=== PATIENT | male | born 1935 | race Caucasian/White ===

== ENCOUNTER → 2018-09-02 | Outpatient (CLI) | payer OTHER, MEDICARE ==
--- NOTE | 2018-09-02 15:37 | 2DMMODE ---
[facility] [place] [address] 2 D/M-MODE ECHOCARDIOGRAM Name: SOFIJACKSON LEE Room #: REG [facility]#: [id number] ������������� Admission: 09/02/18 ������������� Attend Phys: Niels Mckee Discharge: ��� ������������� ��� Date of : 33 Date of Service: 09/02/18 1537 �� Report #: [id number] �������� ��������������������������������������������[id number] THIS REPORT FOR: //name// APPROVED REPORT Study performed: 09/02/2018 13:07:52 EXAM: Comprehensive 2D, Doppler, and color-flow Echocardiogram Patient Location: Out-Patient Status: routine BSA: 1.95 HR: 93 bpm BP: 120/74 mmHg Rhythm: Atrial Fibrillation Other Information Study Quality: Good Indications Atrial Fibrillation 2D Dimensions RVDd: 42.37 mm IVSd: 14.59 (7-11mm) LVOT Diam: 21.83 (18-24mm) LVDd: 36.78 mm PWd: 13.07 (7-11mm) Ascending Ao: 37.53 (22-36mm) LVDs: 28.16 (25-40mm) Aortic Root: 36.17 mm Volumes Left Atrial Volume (Systole) Single Plane 4CH: 116.56 mL Single Plane 2CH: 108.01 mL LA ESV Index: 63.00 mL/m2 Aortic Valve AoV Peak Seun.: 2.73 m/s AO Peak Gr.: 29.78 mmHg LVOT Max P.51 mmHg AO Mean Gr.: 18.46 mmHg AO V2 Mean: 2.09 m/s LVOT Max V: 0.79 m/s AO V2 VTI: 60.50 cm CALE Vmax: 1.09 cm2 Mitral Valve MV Decel. Time: 111.36 ms [facility] [address] [place] [address] 2 D/M-MODE ECHOCARDIOGRAM Name: JACKSON FARAH SACHIN Room #: REG [facility]#: [id number] ������������� Admission: 09/02/18 ������������� Attend Phys: Niels Mckee Discharge: ��� ������������� ��� Date of : 33 Date of Service: 09/02/18 1537 �� Report #: [id number] �������� ��������������������������������������������[id number] MV E Max Seun.: 1.14 m/s Pulmonary Valve PV Peak Seun.: 0.81 m/s PV Peak Gr.: 2.64 mmHg Tricuspid Valve TR Peak Seun.: 2.96 m/s RAP Estimate: 5.00 mmHg TR Peak Gr.: 35.26 mmHg PA Pressure: 40.00 mmHg Left Ventricle The left ventricle is normal size. Moderate concentric left ventricular hypertrophy. Left ventricular systolic function is normal. LVEF is 55%. This study is not technically sufficient to allow evaluation of the LV diastolic function due to atrial fibrillation. Right Ventricle Right ventricle is at the upper limits of normal. The right ventricular systolic function is normal. Atria Left atrium is moderately dilated. Right atrium is moderately dilated. Aortic Valve Aortic valve is heavily calcified. Mild aortic regurgitation. There is moderate valvular aortic stenosis. Calculated aortic valve area is 1.1 cm2 with maximum pressure gradient of 30 mmHg and mean pressure gradient of 18 mmHg. Mitral Valve Mitral valve leaflets are thickened. Mild mitral annular calcification. Moderate mitral regurgitation. Tricuspid Valve The tricuspid valve is normal in structure. Mild to moderate tricuspid regurgitation. Estimated PAP is 40mmHg. Pulmonic Valve The pulmonary valve is normal in structure. Moderate pulmonic regurgitation. Great Vessels The aortic root is normal in size. The ascending aorta is borderline dilated. IVC is normal in size and collapses >50% with [facility] [address] [place] [place] [address] 2 D/M-MODE ECHOCARDIOGRAM Name: JACKSON FARAH SACHIN [facility] [id number] ������������� Admission: 09/02/18 ������������� Attend Phys: Niels Mckee Discharge: ��� ������������� ��� Date of : 33 Date of Service: 09/02/18 1537 �� Report #: [id number] �������� ��������������������������������������������[id number] inspiration. Pericardium There is no pericardial effusion. <Conclusion> The left ventricle is normal size. Moderate concentric left ventricular hypertrophy. LVEF is 55%. This study is not technically sufficient to allow evaluation of the LV diastolic function due to atrial fibrillation. Right ventricle is at the upper limits of normal. Left atrium is moderately dilated. Right atrium is moderately dilated. Aortic valve is heavily calcified. Mild aortic regurgitation. There is moderate valvular aortic stenosis. Calculated aortic valve area is 1.1 cm2 with maximum pressure gradient of 30 mmHg and mean pressure gradient of 18 mmHg. Mitral valve leaflets are thickened. Mild mitral annular calcification. Moderate mitral regurgitation. Mild to moderate tricuspid regurgitation. Estimated PAP is 40mmHg. The aortic root is normal in size. The ascending aorta is borderline dilated. There is no pericardial effusion. ��������������������������������������������� <ELECTRONICALLY SIGNED> ���������������������������������������� By: Ayush Gonzalez MD, [facility] ��������������������������������������������� 09/02/18 1537 [id number] Ayush Gonzalez MD, FACC /INF
== END ==
LOC: CV 12:01
DX: I08.8 Other rheumatic multiple valve diseases (principal); I48.91 Unspecified atrial fibrillation

== ENCOUNTER → 2020-05-25 | Outpatient (CLI) | payer OTHER, MEDICARE | LOC: RAD 08:50 | PROVIDERS: ATTEND Internal Medicine | DX: R13.12 Dysphagia, oropharyngeal phase (principal) ==

== ENCOUNTER 2020-08-03 19:09 | Inpatient (IN) | payer OTHER, MEDICARE ==
[~2020-08-03] VITALS: Ht 175.3 cm; Wt 80.7 kg
[2020-08-03 19:30] VITALS: BP 140/96
[2020-08-03 20:09] LABS: ABSOLUTE NEUTROPHILS 10.5 thou/uL (1.4-8.2); BASOPHILS 0.4 % (0.0-2.0); EOSINOPHILS 0.6 % (0.0-3.0); HEMATOCRIT 40.2 % (42.0-52.0); HEMOGLOBIN 13.7 gm/dL (14.0-18.0); LYMPHOCYTES 2.3 % (24.0-44.0); MCH 31.7 pg (26.0-34.0); MCV 93.2 fL (80.0-100.0); MONOCYTES 3.5 % (1.0-8.0); PLATELET COUNT 292 thou/uL (150-400); POLYS 93.2 % (36.0-66.0); RBC 4.31 mil/uL (4.50-6.00); RDW 12.9 % (10.5-14.5); WBC 11.3 thou/uL (4.0-11.0)
[2020-08-03 20:18] LABS: ANION GAP 9 mmol/L (7-16); BUN 22 mg/dL (7-18); CALCIUM 8.9 mg/dL (8.5-10.1); CHLORIDE 103 mmol/L (98-107); CO2 23 mmol/L (21-32); CREATININE 1.2 mg/dL (0.7-1.3); GLUCOSE 160 mg/dL (74-106); POTASSIUM 4.2 mmol/L (3.5-5.1); SODIUM 135 mmol/L (136-145)
[2020-08-03 20:22] LABS: URINE BILIRUBIN NEGATIVE (Negative); URINE BLOOD TRACE (Negative); URINE CLARITY CLEAR; URINE COLOR YELLOW; URINE GLUCOSE-RANDOM* NEGATIVE (Negative); URINE KETONES 1+ (Negative); URINE LEUKOCYTES-REFLEX NEGATIVE (Negative); URINE NITRITE-REFLEX NEGATIVE (Negative); URINE PROTEIN (DIPSTICK) NEGATIVE (Negative); URINE SPECIFIC GRAVITY 1.025 (1.005-1.035)
[2020-08-03 20:28] LABS: ALBUMIN 3.4 g/dL (3.4-5.0); SGOT 19 U/L (15-37); SGPT 15 U/L (30-65); TOTAL BILIRUBIN 0.7 mg/dL (0.2-1.0); TOTAL PROTEIN 7.8 g/dL (6.4-8.2); TROPONIN-I <0.06 ng/mL (<0.06)
[2020-08-03] MEDS ORDERED: CARDIZEM CD 18180 M3 PO (20:31)
[2020-08-03] MEDS ORDERED: KLOR-CON 1010 MEQ PO (20:31)
[2020-08-03] MEDS ORDERED: LOSARTAN POTAS100 MG PO (20:32)
[2020-08-03] MEDS ORDERED: TORSEMIDE20 MG PO (20:32)
[2020-08-03] MEDS ORDERED: ATIVAN1 M1 PO (20:32)
[2020-08-03] MEDS ORDERED: DEMADEX20 MG PO (20:33)
[2020-08-03] MEDS ORDERED: ASA81BEC PO (20:33)
[2020-08-03] MEDS ORDERED: DERMACINRX5000 UNI1 PO (20:33)
[2020-08-03] MEDS ORDERED: DILTIAZEM 24HR120 M1 PO (20:34)
[2020-08-03 21:59] VITALS: BP 119/76
[2020-08-03 22:21] VITALS: BP 145/80
[2020-08-03 23:02] VITALS: BP 128/69; BP 154/90
[2020-08-03 23:30] VITALS: BP 121/70
[2020-08-04] VITALS (17 sets, daily range): BP systolic 93–149; BP diastolic 57–82
--- NOTE | 2020-08-04 02:48 | NUR ---
PATIENT IS A NEW ADMISSION TO THE UNIT THIS SHIFT. HE ARRIVED VIA CART FROM THE ER AND WAS ABLE TO AMBULATE TO THE BED WITH ASSISTANCE INCIDENT FREE. PATIENT IS FULLY ALERT AND ORIENTED AND ABLE TO PARTICIPATE IN ADMISSION. CARDIZEM GTT AT 10MG/HR TO GOOD AFFECT WITH BLOOD PRESSURE REMAINING STABLE EVIDENCED BY FREQUENT ASSESSMENTS VIA DINAMAP Q30 MINUTES. NURSE TO COMPLETE ADMISSION AND INITIATE PLAN OF CARE.
[2020-08-04 05:35] LABS: HEMATOCRIT 39.4 % (42.0-52.0); MCH 31.1 pg (26.0-34.0); MCV 94.1 fL (80.0-100.0); RBC 4.19 mil/uL (4.50-6.00); WBC 8.5 thou/uL (4.0-11.0)
[2020-08-04 06:11] LABS: CALCIUM 8.6 mg/dL (8.5-10.1); CREATININE 1.2 mg/dL (0.7-1.3)
--- NOTE | 2020-08-04 07:02 | EKG ---
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 : 1935 Requested By: Manny Barriga Order Number: [id number] MD: Pedro Lloyd Measurements Intervals [place] Rate: 143 P: TX: QRS: 47 QRSD: 90 T: 269 QT: 287 QTc: 443 Interpretive Statements Atrial fibrillation with rapid V-rate Repolarization abnormality, prob rate related Compared to ECG 04/04/1996 08:51:00 Early repolarization now present Sinus rhythm no longer present ST (T wave) deviation no longer present Electronically Signed On 08-04-2020 7:02:21 CDT by Pedro Lloyd [email or web address] <ELECTRONICALLY SIGNED> By: Pedro Lloyd MD, [facility] 08/04/20701 58 58 Pedro Lloyd MD, [facility] /EPI
--- NOTE | 2020-08-04 09:20 | 2DMMODE ---
[facility] [place] [address] 2 D/M-MODE ECHOCARDIOGRAM Name: JACKSON FARAH RICHGROVE Room #: 207-P ADM IN M.R.#: [id number] Admission: 08/03/20 Attend Phys: Matheus Gonzalez Discharge: Date of : 33 Report #: [id number] THIS REPORT FOR: cc: Eleuterio Blankenship MD, Christopher B. MD Park, Jin S. MD ~ APPROVED REPORT Study performed: 08/04/2020 08:00:46 EXAM: Comprehensive 2D, Doppler, and color-flow Echocardiogram Patient Location: Bedside Room #: 207 Status: routine BSA: 1.97 HR: 87 bpm BP: 114/78 mmHg Rhythm: Atrial Fibrillation Other Information Study Quality: Adequate Indications Hypotension Atrial Fibrillation Hx: HTN, A-Fib. 2D Dimensions RVDd: 35.12 mm IVSd: 12.53 (7-11mm) LVOT Diam: 21.53 (18-24mm) LVDd: 40.99 mm PWd: 11.33 (7-11mm) Ascending Ao: 37.00 (22-36mm) LVDs: 24.06 (25-40mm) Aortic Root: 31.76 mm Volumes Left Atrial Volume (Systole) Single Plane 4CH: 69.86 mL Single Plane 2CH: 68.14 mL LA ESV Index: 37.00 mL/m2 Aortic Valve AoV Peak Seun.: 3.11 m/s AO Peak Gr.: 38.80 mmHg LVOT Max P.05 mmHg AO Mean Gr.: 22.36 mmHg [facility] [address] [place] [address] 2 D/M-MODE ECHOCARDIOGRAM Name: JACKSON FARAH Room #: 207-P [facility] IN ..#: [id number] Admission: 08/03/20 Attend Phys: Matheus Mei Discharge: Date of : 33 Report #: [id number] AO V2 Mean: 2.20 m/s LVOT Max V: 0.72 m/s AO V2 VTI: 53.75 cm CALE Vmax: 0.84 cm2 Pulmonary Valve PV Peak Seun.: 0.83 m/s PV Peak Gr.: 2.75 mmHg Tricuspid Valve TR Peak Seun.: 2.11 m/s TR Peak Gr.: 17.89 mmHg Left Ventricle The left ventricle is normal size. There is normal LV segmental wall motion. Mild concentric left ventricular hypertrophy. Left ventricular systolic function is normal. LVEF is 55-60%. This study is not technically sufficient to allow evaluation of the LV diastolic function due to atrial fibrillation. Right Ventricle The right ventricle is normal size. The right ventricular systolic function is normal. Atria Left atrium is moderately dilated. Right atrium is moderately dilated. Aortic Valve Aortic valve is heavily calcified. Mild aortic regurgitation. There is severe valvular aortic stenosis. Calculated aortic valve area is 0.8 cm2 with maximum pressure gradient of 39 mmHg and mean pressure gradient of 22 mmHg. Mitral Valve Mitral valve leaflets are mildly thickened. Mild mitral annular calcification. Moderate mitral regurgitation. No evidence of mitral valve stenosis. Tricuspid Valve The tricuspid valve is normal in structure. Mild tricuspid regurgitation. Estimated PAP 18mmHg + RA presssure. Pulmonic Valve The pulmonary valve is normal in structure. Trace to mild pulmonic regurgitation. Great Vessels [facility] [place] [address] 2 D/M-MODE ECHOCARDIOGRAM Name: SOFIJACKSON RICHGROVE Room #: 207-P ADM IN M.R.#: [id number] Admission: 08/03/20 Attend Phys: Matheus Mei Discharge: Date of : 33 Report #: [id number] The aortic root is normal in size. The ascending aorta is normal in size. IVC is not well visualized. Pericardium There is no pericardial effusion. <Conclusion> The left ventricle is normal size. Mild concentric left ventricular hypertrophy. Left ventricular systolic function is normal. The right ventricle is normal size. Left atrium is moderately dilated. There is severe valvular aortic stenosis. Mild aortic regurgitation. Moderate mitral regurgitation. Mild tricuspid regurgitation. Estimated PAP 18mmHg + RA presssure. <ELECTRONICALLY SIGNED> By: Tha Villalba MD 08/04/2019 8 09 Tha Villalba MD /MANNY
--- NOTE | 2020-08-04 12:40 | NUR ---
ASSESSMENT: CM REVIEWED CHART AND SPOKE WITH PATIENT WELL HIS DAUGHTER LEE WHO IS AT THE BEDSIDE. PT WAS ADMITTED WITH AFIB RVR. PT IS DOING WELL AND PER ATTENDING POSSIBLY READY FOR DISCHARGE TOMORROW. PT REPORTS THAT HE LIVES AT HOME WITH DAUGHTER LEE IN A HOUSE. PT HAS ABOUT 4 STEPS WITH HANDRAILS TO ENTER THE HOME. PTS NEED ARE ON ONE LEVEL BUT PT DOES HAVE A STAIR GLIDER IF NEEDING TO GO TO THE BASEMENT. PT REPORTS THAT HE WAS WORKING 5 DAYS A WEEK. PT REPORTS THAT HE HAS A CANE AND WALKER AT HOME TO ASSIST WITH AMBULATION IF NEEDED. PT REPORTS HE DOES NOT ROUTINELY USE DME. PT REPORTS HE HAS HAD HH IN THE PAST BUT UNSURE OF THE COMPANY. PHYSICAL THERAPY IS ORDERED TO SEE PATIENT TODAY. PT AND DAUGHTER STATING THEY DO NOT FEEL HE WILL NEED HH DAUGHTER REPORTS SHE IS THERE TO HELP HIM AND HE IS PRETTY INDEPENDENT. PT REPORTS HIS PCP IS DR. SANJUANITA AMAYA. CM WILL CONTINUE TO FOLLOW TO ASSIST NEEDED. PT EVAL PENDING AT THIS TIME.
--- NOTE | 2020-08-04 18:21 | NUR ---
ASSUMED CARE SHIFT CHANGE. ASSESSMENTS CHARTED.MEDS GIVEN PER JUN. VSS. C/O ABD PAIN MANAGED WITH PAIN MEDS PER JUN. KUB THIS SHIFT- REFER TO RESULTS. PT C/O NAUSEA ZOFRAN GIVEN. C/O CONSTIPATION- PHYSICIAN NOTIFIED. SUPPOSITORY GIVEN WITHOUT RELIEF, PHYSICIAN NOTIFIED, ORDERS FOR NPO. HR REAMINS AFIB CONTROLLED. DAUGHTER AT BEDSIDE THROUGHOUT SHIFT, UPDATED ON POC. PT CURRENTLY SITTING UP IN CHAIR. DENIES NEEDS. CONTINUING POC. WILL PASS ON REPORT TO BALJIT ROBERTS.
--- NOTE | 2020-08-04 23:54 | NUR ---
PATIENT BROUGHT MINIMAL RELIEF WITH ANTI NAUSEA MEDICATIONS. PATIENT HAS BEEN EDUCATED ON THE BENEFITS OF A NG TUBE BUT HAS DECLINED MULTIPLE TIMES. NURSE TO CONTINUE TO LOOK FOR OPPORTUNITIES TO EDUCATE. PROVIDERS AWARE.
[2020-08-05 05:02] VITALS: BP 132/67
[2020-08-05 07:50] VITALS: BP 143/62
--- NOTE | 2020-08-05 10:48 | NUR ---
STATES THAT HIS NAUSEA IS LESS TODAY. FLEETS ENEMA GIVEN WITH MODERATE RESULTS OF SOFT FORMED LT BROWN STOOL.
[2020-08-05 11:40] VITALS: BP 132/72
--- NOTE | 2020-08-05 14:08 | NUR ---
on-going assessment: CM REVIEWED CHART. PTS HR IS ELEVATED AND POSSIBLE ILEUS. IF PATIENT IMPROVES HE WILL POSSIBLE DISCHARGE OVER THE WEEKEND. THERAPY HAS BEEN WORKING WITH PT. CM MET WITH PATIENT AND HIS DAUGHTER AT THE BEDSIDE WHOM HE LIVES WITH. PT AND HIS DAUGHTER DECLINE THE NEED FOR HOME HEALTH STATING HE IS DOING WELL AND SHE CAN ASSIST HIM IF NEEDED. THEY DECLINE THE NEED FOR HH AT THIS TIME. IF PATIENT IS ABLE TO DISCHARGE OVER THE WEEKEND CONTACT PATIENTS DAUGHTER AND SHE WILL PICK HIM UP, HER CONTACT IS [phone].
--- NOTE | 2020-08-05 14:24 | NUR ---
PATIENT CONTINUES TO HAVE STOOLS. ABD IS SOFTER. DR BROWNLEE NOTIFIED. ORDERS NOTED
[2020-08-05 16:20] VITALS: BP 131/66
--- NOTE | 2020-08-05 18:05 | NUR ---
PATIENT IS PROGRESSING TOWARDS OUTCOME GOALS HE IS HAVING STOOLS, LESS NAUSEA, DAUGHTER AT BEDSIDE. TAKING CLEAR LIQUID DIET
[2020-08-05 19:02] VITALS: BP 140/63
[2020-08-06 04:12] VITALS: BP 102/65
[2020-08-06 07:45] VITALS: BP 132/52
[2020-08-06] MEDS ORDERED: DIGOXIN250 MCG PO (10:35)
[2020-08-06] MEDS ORDERED: CARDIZEM CD 18180 M3 PO (10:36)
[2020-08-06 10:59] VITALS: BP 132/52
[2020-08-06 11:35] VITALS: BP 119/51
--- NOTE | 2020-08-06 12:53 | NUR ---
ASSUMED CARE SHIFT CHANGE. ASSESSMENT CHARTED. MEDS GIVEN PER MAR. VSS DENIES PAIN. DENIES N/V. HR CONTROLLED. DENIES CP. DC ORDERS ACKNOWLEDGED. DC PAPERWORK DISCUSSED WITH PT COMMUNICATING UNDERSTANDING. DAUGHTER TO EXECUTIVE SECRETARY SOC[employer] WELFARE PT. IV REMOVED TELE REMOVED. PT LEFT UNIT WITH ALL BELONGINGS.
--- NOTE | 2020-08-07 08:17 | HC ---
[facility] [place] [address] CONSULTATION Name: JACKSON FARAH Room #: 207-P [facility] IN M.R.#: [id number] Admission: 08/03/20 Attend Phys: Matheus Espinoza Hamidalilian Discharge: 08/06/20 Date of : 34 Report #: [id number] THIS REPORT FOR: cc: Eleuterio Blankenship MD, Christopher B. MD Forman, John M. MD ~ DATE OF SERVICE: 08/04/2020 We are asked to see the patient by Dr. Mckee. HISTORY OF PRESENT ILLNESS: The patient is an 84-year-old admitted on 08/03/2020 with weakness. The patient states he had low blood pressure and was taken off of blood pressure medicines by his primary care physician. Heart rate then shot up into the 140 range. The patient was feeling "not too good" and "very anxious." He was seen in the Emergency Department on the advice of his primary care physician. On admission, EKG showed atrial fibrillation with a rapid ventricular rate. Cardiac echo (transthoracic) shows calcific aortic stenosis with a calculated valve area of 0.8 cm2 and a peak gradient of 39 mm and a mean gradient of 22. PAST HISTORY: Significant for atrial fibrillation. MEDICATIONS AT HOME: Includes torsemide, diltiazem, potassium, lorazepam, aspirin, vitamin D3. Discontinued medicines include Cardizem CD and torsemide. Other past problems include hypertension, recurrent diverticulitis, hypoglycemia, degenerative joint disease, and anemia. 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 Tobacco use, claims he has smoked only when he was in the service in late 50s. ALLERGIES: PENICILLIN. REVIEW OF SYSTEMS: CONSTITUTIONAL: Denies fever or chills. EYES: Denies eye pain or visual change. HEENT: Denies hearing change, sinus problems. RESPIRATORY: Since coming into the hospital, the patient has been producing significant amounts of sputum. He claims this was not a problem at home. CARDIAC: Denies chest pain or angina. GASTROINTESTINAL: Denies nausea or vomiting. Denies burning, frequency, or urgency. MUSCULOSKELETAL: Denies bone or joint pain. SKIN: Denies rash or infection. NEUROLOGIC: No specific motor or sensory dysfunction, although the patient has [facility] [address] [place] [address] CONSULTATION Name: JACKSON FARAH SACHIN Room #: 207-P [facility] IN M.R.#: [id number] Admission: 08/03/20 Attend Phys: Matheus Gonzalez Discharge: 08/06/20 Date of : 33 Report #: [id number] had generalized weakness. ENDOCRINE: Denies goiter or tremor. HEMATOLOGIC: Denies bruisability or bleeding. PHYSICAL EXAMINATION: GENERAL: The patient is sitting in the chair, coughing intermittently into Kleenex and the used Kleenexes are filling the basin. No obvious tachypnea associated with the sputum production. VITAL SIGNS: Temperature 36.3, heart rate 80-100, respiratory rate 18, blood pressure 128/69, and O2 sat 100% on room air. HEENT: No scleral icterus, no arcus. The patient has poor dentition with eroded incisors anteriorly on the top. NECK: No mass, no bruit. CHEST: Clear to auscultation anteriorly. HEART: Rhythm regular with grade 1 aortic systolic murmur radiating to the neck. ABDOMEN: Protuberant, soft. SKIN: No rash or infection. NEUROLOGIC: No obvious motor or sensory dysfunction. MUSCULOSKELETAL: No bone or joint asymmetry or deformity. PSYCHIATRIC: Oriented and appropriate. ASSESSMENT AND PLAN: The patient has important aortic stenosis with atrial fibrillation with rapid ventricular rate. I began discussing options for aortic valve replacement. These include surgical open aortic valve replacement and trans-arterial valve replacement. As I was beginning this discussion, the patient had urgency to have a bowel movement and discussion was truncated to be continued later. Nevertheless, the patient appears that he would be a better trans-arterial valve replacement candidate with advanced age and comorbid factors. Of course, the workup for this has not been done in any way yet. <ELECTRONICALLY SIGNED> By: Ismael Gomez MD 08/07/20 0817 [id number] [id number] Ismael Gomez MD /nt
--- NOTE | 2020-08-10 13:58 | NUR ---
Note Given: Y Facility List Provided:Y Facility Dylan: None chosen at this time Jennifer Preciado Np discussed BPCI with this pt 08/05/2020
== END 2020-08-06 12:55 | disposition home or self-care (01) | DRG 291 ==
LOC: ER 19:09 → EROBS 21:38 → 2N 21:38
PROVIDERS: Emergency Medicine; Nurse Practitioner Family; ADMIT Hospitalist; ATTEND Hospitalist
DX: I50.21 Acute systolic (congestive) heart failure (principal); R65.11 Systemic inflammatory response syndrome (SIRS) of non-infectious origin with acute organ dysfunction; K56.7 Ileus, unspecified; I48.0 Paroxysmal atrial fibrillation; K52.9 Noninfective gastroenteritis and colitis, unspecified; I08.3 Combined rheumatic disorders of mitral, aortic and tricuspid valves; I10 Essential (primary) hypertension; F41.9 Anxiety disorder, unspecified; M19.90 Unspecified osteoarthritis, unspecified site; R53.81 Other malaise; K59.00 Constipation, unspecified; G47.00 Insomnia, unspecified; R35.0 Frequency of micturition; Z96.641 Presence of right artificial hip joint; Z90.49 Acquired absence of other specified parts of digestive tract; Z88.0 Allergy status to penicillin
CPT/HCPCS: 10081

== ENCOUNTER → 2020-08-24 | Outpatient (CLI) | payer OTHER, MEDICARE ==
[~2020-08-24] MED LIST: ASA81BEC PO; ATIVAN1 M1 PO; CARDIZEM CD 18180 M3 PO; DEMADEX20 MG PO; DERMACINRX5000 UNI1 PO; DIGOXIN250 MCG PO; DILTIAZEM 24HR120 M1 PO; KLOR-CON 1010 MEQ PO; LOSARTAN POTAS100 MG PO; TORSEMIDE20 MG PO
== END ==
LOC: SJCVC 11:20
PROVIDERS: ATTEND Internal Medicine Cardiovascular Disease
DX: R94.31 Abnormal electrocardiogram [ECG] [EKG] (principal); I35.0 Nonrheumatic aortic (valve) stenosis; I48.21 Permanent atrial fibrillation; I10 Essential (primary) hypertension; R60.9 Edema, unspecified; Z90.49 Acquired absence of other specified parts of digestive tract; Z88.0 Allergy status to penicillin; Z88.8 Allergy status to other drugs, medicaments and biological substances; Z79.82 Long term (current) use of aspirin; Z79.899 Other long term (current) drug therapy; Z98.890 Other specified postprocedural states

== ENCOUNTER → 2020-11-10 | Outpatient (CLI) | payer OTHER, MEDICARE | LOC: SJCVC 10:18 | PROVIDERS: ATTEND Internal Medicine Cardiovascular Disease | DX: R94.31 Abnormal electrocardiogram [ECG] [EKG] (principal); I35.0 Nonrheumatic aortic (valve) stenosis; I48.21 Permanent atrial fibrillation; I10 Essential (primary) hypertension; R60.9 Edema, unspecified; Z88.0 Allergy status to penicillin; Z88.1 Allergy status to other antibiotic agents; Z79.82 Long term (current) use of aspirin; Z79.899 Other long term (current) drug therapy ==